=== PATIENT | female | born 1945 | race Caucasian/White ===

== ENCOUNTER 2021-07-03 10:39 | Inpatient (IN) | payer OTHER ==
[~2021-07-03] VITALS: Ht 175.3 cm; Wt 77.1 kg
[2021-07-03] VITALS (11 sets, daily range): BP systolic 94–214
[~2021-07-03 10:39] MED LIST: ETOMIDATE 20 MG/ 10 ML VIAL (AMIDATE) ONE; ROCURONIUM BROMIDE 10 MG/ML (ZEMURON) ONE
--- NOTE | 2021-07-03 10:39 | NUR ---
Patient to ER bed 8 for evaluation. Side rails up. Report given to Yanci GREENE.
--- NOTE | 2021-07-03 10:40 | NUR ---
ER Dr Dickson at bedside to assess/treat patient
--- NOTE | 2021-07-03 10:40 | NUR ---
Pt BIBA from home with Ambu-bag in progress re new onset sz. PMH lung CA with mets to brain reported per MD. Pt unresponsive upon arrival. Code status unclear per dtr, who came with patient. Pt to be full code until clarification. On monitoring manager, pt tachycardic and hypertensive. MD, RN, and RT to bedside immediately upon arrival.
--- NOTE | 2021-07-03 10:41 | NUR ---
PT ARRIVES WITH #20 TO RIGHT HAND, PATENT WHEN FLUSHED WITH 10ML NS
--- NOTE | 2021-07-03 10:45 | NUR ---
# 18 gauge angiocath placed to LAC. Use of asceptic technique. Opsite placed over site. Blood return noted. Flushed with 10 cc of normal saline. No evidence of infiltration noted. Patient tolerated well.
--- NOTE | 2021-07-03 10:47 | NUR ---
Patient not known to be of DNR status. Patient medicated with 10 mg of ETOMIDATE AND 100MG ROCURONIUM for sedation prior to placement of ET tube. Respiratory therapy at bedside prior to placement. ET tube placed by ER DR. GUZMAN. Cuff inflated with air. Auscultation of breath sounds over bilateral chest wall. ET tube secured. O2 sats 99% pulse ox. PCXR ordered to check tube placement.
[2021-07-03] MEDS ORDERED: PROPOFOL DRIP 100 ML IV ONE ×2 (11:00→15:22)
--- NOTE | 2021-07-03 11:09 | NUR ---
# 16 FR NG tube placed to LEFT nare. Placement checked by auscultation of instilled air into stomach and aspiration of gastric contents. Tubing taped in place to prevent dislodging. Patient tolerated WELL.
[2021-07-03] MEDS ORDERED: LEVO125T8 PO (11:13)
[2021-07-03] MEDS ORDERED: PARO40TA80 PO (11:13)
[2021-07-03] MEDS ORDERED: DEC4 PO (11:13)
[2021-07-03] MEDS ORDERED: LIP40 PO (11:13)
--- NOTE | 2021-07-03 11:13 | NUR ---
Medication reconciliation completed with information provided by patient's medication bottles. Any prior medication reconciliation on file was reviewed and corrected.
--- NOTE | 2021-07-03 11:15 | NUR ---
PORTABLE XRAY AT THE BEDSIDE
--- NOTE | 2021-07-03 11:24 | NUR ---
LAB AT THE BEDSIDE FOR BLOOD DRAW
--- NOTE | 2021-07-03 11:30 | NUR ---
DAUGHTER AT THE BEDSIDE
[2021-07-03 11:38] LABS: BASOPHILS # (AUTO) 0.1 K/uL (0.0-0.2); BASOPHILS % (AUTO) 0.7 % (0.0-2.0); EOSINOPHILS # (AUTO) 0.1 K/uL (0.0-0.4); EOSINOPHILS % (AUTO) 0.6 % (0.0-4.0); HEMATOCRIT 41.8 % (36-48); HEMOGLOBIN 13.8 g/dL (12.0-16.0); LYMPHOCYTES # (AUTO) 0.6 K/uL (1.0-5.5); LYMPHOCYTES % (AUTO) 4.3 % (20.5-51.5); MEAN CORPUSCULAR HEMOGLOBIN 32 pg (27-31); MEAN CORPUSCULAR HGB CONC 33 % (32-36); MEAN CORPUSCULAR VOLUME 96 fL (79.0-98.0); MONOCYTES # (AUTO) 0.5 K/uL (0.0-1.0); MONOCYTES % (AUTO) 3.7 % (1.7-9.3); NEUTROPHILS # (AUTO) 12.7 K/uL (1.8-7.7); NEUTROPHILS % (AUTO) 90.7 % (40.0-70.0); PLATELET COUNT (AUTO) 203 K/uL (130-430); RED BLOOD CELL COUNT(AUTO) 4.37 MIL/uL (4.2-6.2); RED CELL DISTRIBUTION WIDTH 14.6 % (9.0-15.0)
[2021-07-03 11:54] LABS: INR 0.9 (0.8-1.2); PROTHROMBIN TIME 9.9 SECS (9.5-12.5)
[2021-07-03 12:08] LABS: ANION GAP 8 (5-15); CHLORIDE 102 mmol/L (98-107); CREATININE 0.86 mg/dL (0.55-1.30); GLUCOSE 162 mg/dL (70-99); POTASSIUM 3.9 mmol/L (3.5-5.1); SODIUM SERUM 136 mmol/L (136-145); UREA NITROGEN, BLOOD 21 mg/dL (8-21)
[2021-07-03 12:22] LABS: ALANINE AMINOTRANSFERASE 40 U/L (12-78); ALBUMIN 3.1 g/dL (3.4-4.8); ASPARTATE AMINOTRANSFERASE 20 U/L (10-37); TOTAL BILIRUBIN 0.1 mg/dL (0.0-1.0)
--- NOTE | 2021-07-03 13:18 | NUR ---
Propofol gtt decreased to 30 mcg/kg/min due to BP 109/60. RAMONA Carreno made aware.
--- NOTE | 2021-07-03 13:50 | NUR ---
# 16 FR Patterson catheter with use of sterile technique. Immediate return of 100 cc YELLOW urine noted. Bedside drainage bag placed below level of bladder. Urine sample collected and sent to lab. Pt tolerated procedure well. Patient unable to toilet self.
[2021-07-03 14:26] LABS: BILIRUBIN,URINE NEGATIVE (NEGATIVE); CLARITY/URINE CLEAR (CLEAR); COLOR,URINE YELLOW (YELLOW); GLUCOSE,URINE NEGATIVE (NEGATIVE); KETONES,URINE NEGATIVE (NEGATIVE); LEUKOCYTE ESTERASE ,URINE NEGATIVE (NEGATIVE); NITRITE, URINE NEGATIVE (NEGATIVE); PH,URINE 5.5 (5.0-8.0); PROTEIN URINE 1+ (NEGATIVE); UROBILINOGEN,URINE 0.2 (0.2-1.0)
[2021-07-03 14:36] LABS: BLOOD, URINE TRACE (NEGATIVE)
[2021-07-03 14:41] LABS: BACTERIA,URINE RARE /HPF (None Seen); HYALINE CASTS, URINE 0-10 /LPF (None Seen); WBC,URINE 0-3 /HPF (0-3)
[2021-07-03 14:42] LABS: MUCUS,URINE 1+ /LPF (None Seen)
[2021-07-03] MEDS: D5/0.45 NS 1,000 ML IV SCH (15:45)
--- NOTE | 2021-07-03 16:00 | NUR ---
Admit bed requested Patient will be admitted to care of Dr. Angel. Admitted to ICU unit. Diagnosis Status Epilepticus Inpatient (Yes or No) Y Observation (Yes or No) Y Orientation concerns or request close to nursing station (Yes or No) N Covid Status Neg On vent or bipap Vent Isolation requirements N Needs a sitter N From Home (Yes or if No enter name of facility) Home Requires Dialysis (Yes or No) N Med Rec Completed (Yes of No) Y
--- NOTE | 2021-07-03 16:38 | NUR ---
Patient will be admitted to care of DR. YOUNG. Admitted to ICU unit. Will go to room 7. Belongings list completed. Complete and up to date summary report printed. SBAR report to be given at bedside with opportunity for questions.
--- NOTE | 2021-07-03 17:22 | NUR ---
All cares assumed patient will transfer to Bed 7 ICU
--- NOTE | 2021-07-03 17:35 | NUR ---
RT NOTE: 1735 Pt transported to ICU 7 with RN and placed on vent. No issues during tansport. Addendum: 07/03/21 at 1813 by Judy Omalley RT Amended: Links added.
--- NOTE | 2021-07-03 18:00 | NUR ---
Patient arrived in ICU Bed 7 All cares assumed (RAMONA Smith) Bedside report rcvd. Patient placed onto monitor.
--- NOTE | 2021-07-03 18:01 | NUR ---
Spoke with MD Jeanne crump [facility] and transcribed,
[2021-07-03] MEDS: levETIRAcetam 1,000 MG in NS 100 ML IV SCH ×2 (18:08→21:54)
--- NOTE | 2021-07-03 18:14 | NUR ---
PAGED DR.PALIWAL Mckee FOR ORDERS SPOKE TO: AUTOMATED EXCHANGE
--- NOTE | 2021-07-03 18:19 | NUR ---
Nursing Narrative: (Sarah,RN) Patient rc'vd on ventilator settings AC, TV400, FIO2 40%, Peep 5, Rate 20. Pt withdrawals to pain, intubated and sedated on Propofol running at 50mcg/kg/min. Sinus tach on monitor 105-110s regular rhythm. Lung sounds coarse BUL / BLL noted on auscultation, RT aware and MD notified. Abd soft round, non-tender last BM unknown. 16F snowden placed when in ED, urine nik in color draining below level of bladder. Skin warm dry and intact no breakdown noted. PIV 18G to left AC, PIV 18G to Right Hand, patent with IVs running on pump. CHG bath given with new gown applied.
--- NOTE | 2021-07-03 18:26 | NUR ---
PICC order placed, called family to obtain consent, pending return call.
[2021-07-03] MEDS ORDERED: NOREPINEPHRINE BITARTRATE 8 MG in NS 242 ML IV PRN (18:30)
--- NOTE | 2021-07-03 18:37 | NUR ---
Belongings sent home with family per ED
--- NOTE | 2021-07-03 18:56 | NUR ---
Report given to NOC RN, all cares endorsed.
[2021-07-03 19:28] LABS: INR 0.9 (0.8-1.2); PROTHROMBIN TIME 9.8 SECS (9.5-12.5)
[2021-07-03] MEDS ORDERED: ONDANSETRON HCL 4 MG/2 ML VIAL IVP PRN (20:15)
[2021-07-03] MEDS: PROPOFOL DRIP 100 ML IV PRN (21:56)
[2021-07-03] MEDS ORDERED: cefTRIAXone 1 GM IVPB PREMIX 50 ML IV ONE (22:14)
[2021-07-03] MEDS: cefTRIAXone 1 GM in D5W 50 ML IV SCH (22:48)
[2021-07-04] VITALS (48 sets, daily range): BP systolic 93–152
--- NOTE | 2021-07-04 01:31 | NUR ---
CONSULTATION PAGED/CALLED Reason for Consultation: RESPIRATORY FAILURE Person Who was Notified: CARLOS Consulting Physician: DR. ENRIQUEZ Lift Manager Specialty: PULMONOLOGY Ordering Physician: DR. Rylee YOUNG
[2021-07-04] MEDS: D5/0.45 NS 1,000 ML IV SCH ×2 (05:04→12:00)
[2021-07-04 06:37] LABS: ANION GAP 6 (5-15); CALCIUM 8.6 mg/dL (8.4-11.0); CHLORIDE 105 mmol/L (98-107); CREATININE 0.77 mg/dL (0.55-1.30); GLUCOSE 105 mg/dL (70-99); PHOSPHORUS 4.2 mg/dL (2.7-4.5); POTASSIUM 3.8 mmol/L (3.5-5.1); SODIUM SERUM 140 mmol/L (136-145); UREA NITROGEN, BLOOD 18 mg/dL (8-21)
[2021-07-04 06:44] LABS: BASOPHILS % (AUTO) 0.3 % (0.0-2.0); EOSINOPHILS # (AUTO) 0.1 K/uL (0.0-0.4); EOSINOPHILS % (AUTO) 0.8 % (0.0-4.0); HEMATOCRIT 38.6 % (36-48); LYMPHOCYTES % (AUTO) 9.3 % (20.5-51.5); MEAN CORPUSCULAR HEMOGLOBIN 32 pg (27-31); MEAN CORPUSCULAR HGB CONC 34 % (32-36); MEAN CORPUSCULAR VOLUME 96 fL (79.0-98.0); MONOCYTES # (AUTO) 0.9 K/uL (0.0-1.0); MONOCYTES % (AUTO) 8.5 % (1.7-9.3); NEUTROPHILS # (AUTO) 8.5 K/uL (1.8-7.7); NEUTROPHILS % (AUTO) 81.1 % (40.0-70.0); PLATELET COUNT (AUTO) 166 K/uL (130-430); RED BLOOD CELL COUNT(AUTO) 4.02 MIL/uL (4.2-6.2); RED CELL DISTRIBUTION WIDTH 14.9 % (9.0-15.0); WHITE BLOOD COUNT (AUTO) 10.4 K/uL (4.8-10.8)
[2021-07-04] MEDS ORDERED: DEXAMETHASONE SOD PHOSPHATE 4 MG/ML VIAL IVP ONE (07:15)
--- NOTE | 2021-07-04 07:15 | NUR ---
Receiving RN: Mike Garcia Patient rc'vd on ventilator settings AC 20, TV400, FIO2 40%, Peep 5, Rate 20. Paitient is intubated and sedated on Propofol running at 50mcg/kg/min. Sinus rhythm on monitor 68's regular rhythm. Abd soft round, non-tender last BM was last night as per report. With 16F snowden draining below level of bladder with clear- yellow urine. Skin warm dry and intact no breakdown noted. PICC line on TICO with double lumen , flushed & patent with IVs running on pump.
[2021-07-04] MEDS: PANTOPRAZOLE SODIUM 40 MG/VIAL (PROTONIX) IVP SCH (08:18)
[2021-07-04] MEDS: levETIRAcetam 1,000 MG in NS 100 ML IV SCH ×2 (08:20→22:03)
--- NOTE | 2021-07-04 09:00 | NUR ---
ABG results relayed to Dr. Oconnor via phone call. Per Dr. Oconnor, no new orders at this time. Will continue to monitor. Alesia Garcia RN
--- NOTE | 2021-07-04 09:50 | NUR ---
Dr. Angel ordered Dietary consult for proper Diet order. Dietitian here in ICU & made aware of the order. Alesia Garcia RN
[2021-07-04] MEDS: DEXAMETHASONE SOD PHOSPHATE 4 MG/ML VIAL IVP SCH ×2 (12:00→18:45)
--- NOTE | 2021-07-04 13:30 | NUR ---
Wound Evaluation: Wound Consult ordered for Low Jose Score. Patient evaluated for a low Jose score of 9. Patient was obtunded, intubated, and sedated, and received in a Michelle Bed. Patient needs to be turned in bed. Skin is intact. Recommend reposition patient every 2 hours with pillow support. Elevate, off-load and float bilateral heels with 1 pillow lengthwise under each extremity at all times. Offload pressure areas with pillows for pressure re-distribution. Perform skin care and monitor skin integrity Q shift. Use moisture barrier cream on moisture susceptible areas QID and PRN for soiling. Place patient on a low air-loss mattress.
--- NOTE | 2021-07-04 13:39 | NUR ---
Dietitian Recommendations * Vital AF 1.2 at 50 ml/hr (goal rate), Prosource daily, FWF 250 Q6H * Current Propofol, EN and supplement Provides 1561 kcals/day, 105 g protein/day, 1973 ml free water * Meeting 103% of estimated caloric needs, 78% of upper end of estimated protein needs and 68% of estimated fluid needs. Please refer to Nutrition Assessment for details. Addendum: 07/04/21 at [address] Amended: Links added.
[2021-07-04] MEDS: PROPOFOL DRIP 100 ML IV PRN ×2 (14:13→19:14)
--- NOTE | 2021-07-04 15:04 | NUR ---
NEURO CONSULTATION : JUAN MITCHELL IS AWARE AND WILL BE HERE TODAY AFTER 5 PM. DAUGHTER: BOOKER MADE AWARE.
--- NOTE | 2021-07-04 19:30 | NUR ---
Bulmaro Quinn RN, report received from day RN. Assuming care now.
[2021-07-04] MEDS: LORazepam 2 MG/ML VIAL IVP PRN (20:50)
[2021-07-04] MEDS: cefTRIAXone 1 GM in D5W 50 ML IV SCH (22:03)
[2021-07-05] VITALS (39 sets, daily range): BP systolic 103–161
[2021-07-05] MEDS: DEXAMETHASONE SOD PHOSPHATE 4 MG/ML VIAL IVP SCH ×4 (00:48→17:33)
[2021-07-05] MEDS: D5/0.45 NS 1,000 ML IV SCH ×2 (05:15→14:06)
[2021-07-05 06:32] LABS: BASOPHILS # (AUTO) 0.3 K/uL (0.0-0.2); BASOPHILS % (AUTO) 1.5 % (0.0-2.0); EOSINOPHILS % (AUTO) 0.3 % (0.0-4.0); HEMATOCRIT 38.2 % (36-48); LYMPHOCYTES # (AUTO) 0.6 K/uL (1.0-5.5); LYMPHOCYTES % (AUTO) 3.3 % (20.5-51.5); MEAN CORPUSCULAR HEMOGLOBIN 32 pg (27-31); MEAN CORPUSCULAR HGB CONC 34 % (32-36); MEAN CORPUSCULAR VOLUME 95 fL (79.0-98.0); MONOCYTES # (AUTO) 0.6 K/uL (0.0-1.0); MONOCYTES % (AUTO) 3.3 % (1.7-9.3); NEUTROPHILS # (AUTO) 16.6 K/uL (1.8-7.7); NEUTROPHILS % (AUTO) 91.6 % (40.0-70.0); PLATELET COUNT (AUTO) 202 K/uL (130-430); RED BLOOD CELL COUNT(AUTO) 4.02 MIL/uL (4.2-6.2); RED CELL DISTRIBUTION WIDTH 14.7 % (9.0-15.0); WHITE BLOOD COUNT (AUTO) 18.1 K/uL (4.8-10.8)
[2021-07-05 06:55] LABS: ALANINE AMINOTRANSFERASE 21 U/L (12-78); ALBUMIN 2.3 g/dL (3.4-4.8); ANION GAP 7 (5-15); ASPARTATE AMINOTRANSFERASE 14 U/L (10-37); CALCIUM 8.4 mg/dL (8.4-11.0); CHLORIDE 105 mmol/L (98-107); CREATININE 0.61 mg/dL (0.55-1.30); GLUCOSE 138 mg/dL (70-99); POTASSIUM 3.8 mmol/L (3.5-5.1); SODIUM SERUM 140 mmol/L (136-145); TOTAL BILIRUBIN < 0.1 mg/dL (0.0-1.0); UREA NITROGEN, BLOOD 14 mg/dL (8-21)
--- NOTE | 2021-07-05 07:30 | NUR ---
Receiving RN: Mike Garcia Patient rc'vd on ventilator settings AC 20, TV400, FIO2 40%, Peep 5, Rate 20. Paitient is intubated and sedated on Propofol running at 20mcg/kg/min. Sinus rhythm on monitor 70's regular rhythm. Abd soft round, non-tender. With 16F snowden draining below level of bladder with clear- yellow urine. Skin warm dry and intact no breakdown noted. PICC line on TICO with double lumen , flushed & patent with IVs running on pump. NGT with continuous feeding: Vital AF @ 30 mL/hr. HOB elevated. Aspiration precautions rendered.
[2021-07-05] MEDS: PROPOFOL DRIP 100 ML IV PRN ×2 (07:46→14:59)
[2021-07-05 08:36] LABS: ERYTHROCYTE SEDIMENTATION RATE 12 MM/HR (0-20)
[2021-07-05] MEDS: PANTOPRAZOLE SODIUM 40 MG/VIAL (PROTONIX) IVP SCH (08:58)
[2021-07-05 09:01] LABS: C-REACTIVE PROTEIN QUANT 5.2 mg/dL (0-0.5)
--- NOTE | 2021-07-05 10:45 | NUR ---
Paged Dr. Stone regarding continuation of Keppra. Received new order for Keppra 1000 mg BID
[2021-07-05] MEDS ORDERED: levETIRAcetam 1,000 MG in NS 100 ML IV ONE (11:00)
[2021-07-05] MEDS: BRIMONIDINE TARTRATE 0.2% 5 mL EYE DROPS EACH EYE SCH (15:10)
--- NOTE | 2021-07-05 16:32 | NUR ---
EXTUBATED PATIENT PER MD MORA'S ORDER. PLACED ON NC 2LPM. SPO2 97%, HR 88. PT TOLERATING WELL.
[2021-07-05] MEDS ORDERED: LATANOPROST 2.5 ML DROPS (XALATAN) OP SCH (18:00)
--- NOTE | 2021-07-05 19:10 | NUR ---
Opening notes: Received bedside report from Abigail, patient was A&O X2, NC at 4 L, patient is NPO pending a swallow eval orders put n during day shift, no skin issues foam dressing applid to sacral for prevention, TICO PICC clean and dry covered with transparent dressing saline lock, left hand 18G saline lock, no IV fluid running, bed at the lowest level, call light within reach, appropriate side rails up, oxygen and suction working, CT scan pending tonight without contrast.
[2021-07-05] MEDS: cefTRIAXone 1 GM in D5W 50 ML IV SCH (20:05)
[2021-07-05] MEDS: levETIRAcetam 1,000 MG in NS 100 ML IV SCH (21:04)
[2021-07-06] VITALS (20 sets, daily range): BP systolic 121–167
[2021-07-06] MEDS: DEXAMETHASONE SOD PHOSPHATE 4 MG/ML VIAL IVP SCH ×5 (00:15→23:00)
[2021-07-06] MEDS: BRIMONIDINE TARTRATE 0.2% 5 mL EYE DROPS EACH EYE SCH ×3 (00:16→14:19)
--- NOTE | 2021-07-06 05:45 | NUR ---
Dr Oconnor came and did rounds, suggested patient can be downgraded today if everyone agrees.
[2021-07-06] MEDS ORDERED: DEXAMETHASONE SOD PHOSPHATE 4 MG/ML VIAL ONE ×2 (05:56→06:05)
--- NOTE | 2021-07-06 07:30 | NUR ---
OPENING NOTE RECEIVED BEDSIDE REPORT FROM JUAN DANIEL. PT IS A& Ox4. HEART RATE IN THE 70'S SINUS RHYTHM. BP STABLE. HOB ELEVATED 45 DEGREES. PT RESTING COMFORTABLY IN BED WITH NO COMPLAINTS AT THIS TIME. 3 BED RAILS UP, BRAKES ON AND IN LOWEST POSITION. FAMILY AT BEDSIDE. WILL CONTINUE TO MONITOR.
[2021-07-06 07:35] LABS: BASOPHILS % (AUTO) 0.1 % (0.0-2.0); HEMATOCRIT 40.8 % (36-48); HEMOGLOBIN 13.6 g/dL (12.0-16.0); LYMPHOCYTES # (AUTO) 0.4 K/uL (1.0-5.5); LYMPHOCYTES % (AUTO) 2.1 % (20.5-51.5); MEAN CORPUSCULAR HEMOGLOBIN 32 pg (27-31); MEAN CORPUSCULAR HGB CONC 33 % (32-36); MEAN CORPUSCULAR VOLUME 96 fL (79.0-98.0); MONOCYTES # (AUTO) 0.7 K/uL (0.0-1.0); MONOCYTES % (AUTO) 3.3 % (1.7-9.3); NEUTROPHILS # (AUTO) 19.4 K/uL (1.8-7.7); NEUTROPHILS % (AUTO) 94.5 % (40.0-70.0); PLATELET COUNT (AUTO) 160 K/uL (130-430); RED BLOOD CELL COUNT(AUTO) 4.26 MIL/uL (4.2-6.2); RED CELL DISTRIBUTION WIDTH 14.7 % (9.0-15.0); WHITE BLOOD COUNT (AUTO) 20.6 K/uL (4.8-10.8)
[2021-07-06 08:37] LABS: ANION GAP 9 (5-15); CALCIUM 8.2 mg/dL (8.4-11.0); CHLORIDE 107 mmol/L (98-107); CREATININE 0.61 mg/dL (0.55-1.30); GLUCOSE 124 mg/dL (70-99); SODIUM SERUM 141 mmol/L (136-145); UREA NITROGEN, BLOOD 19 mg/dL (8-21)
[2021-07-06] MEDS: PANTOPRAZOLE SODIUM 40 MG/VIAL (PROTONIX) IVP SCH (08:58)
[2021-07-06] MEDS: levETIRAcetam 1,000 MG in NS 100 ML IV SCH ×2 (08:58→20:07)
[2021-07-06 09:16] LABS: C-REACTIVE PROTEIN QUANT 6.9 mg/dL (0-0.5)
--- NOTE | 2021-07-06 09:57 | NUR ---
DR YOUNG AT BEDSIDE
[2021-07-06] MEDS ORDERED: hydrALAZINE HCL 20 MG/ML VIAL IVP PRN (10:00)
[2021-07-06 12:02] LABS: ERYTHROCYTE SEDIMENTATION RATE 29 MM/HR (0-20)
--- NOTE | 2021-07-06 14:50 | NUR ---
RAMONA TREJO LEFT MESSAGE FOR SPEECH THERAPIST TO FOLLOW UP EXISTING ORDER FOR A SWALLOW EVAL.
[2021-07-06] MEDS ORDERED: LATANOPROST 2.5 ML DROPS (XALATAN) OP SCH (15:05)
--- NOTE | 2021-07-06 16:46 | NUR ---
ST EVALUATION COMPLETED. ST TX NOT INDICATED AT THIS TIME. RECOMMEND PO DIET OF REGULAR/THIN LIQUID WITH DISTANT SUPERVISION FOR ASPIRATION PRECAUTIONS.
--- NOTE | 2021-07-06 19:20 | NUR ---
Opening Notes: Received bedside report from Gatito. Patient was awake and alert sitting up. Patient had ordered in for transfer to the [facility] with a bed 134A. Patient has a TICO PICC, L AC, and R Hand all saline locked. patient had her swallow eval today and is on reg diet. On 5 L NC. Bed at the lowest level, suction working, brakes are locked, appropriate side rails up, call light within reach.
[2021-07-06] MEDS: cefTRIAXone 1 GM in D5W 50 ML IV SCH (20:51)
[2021-07-06] MEDS: LATANOPROST 2.5 ML DROPS (XALATAN) OP SCH (21:00)
[2021-07-06] MEDS: DOCUSATE SODIUM 100 MG CAPSULE PO SCH (21:15)
--- NOTE | 2021-07-06 21:50 | NUR ---
Transferred patient to room 134A, gave bedside report to Noemí. Patient was A&O X4, 5 L NC, only personal belongings were a pair of tweezers, family has all of her other belongings.
--- NOTE | 2021-07-06 22:15 | NUR ---
Patient Transfer: Patient received from ICU. Patient is AAOx4 able to make needs known, denies any pain or distress at this time. Chest rise is even and unlabored with diminished lung sounds on 5L. Normal hear sounds and placed on tele monitoring. Normal bowel sounds are present x4, denies pain with palpation, no distention is noted. PIV's noted on LAC 18G patent and saline locked, RH 22G patent and saline locked. PICC line noted on TICO placed on 07/03/21 no s/s of arm swelling or erythema. Skin is Intact and free of open lesions. Patent has not ambulated since admission. Patterson cath noted to be in place. patent and hanging low with clear yellow urine flowing. Patient is stable at this time and safety measures have been put in place. Patient has been orientated to call light, staff and unit. Will continue to monitor throughout the shift.
--- NOTE | 2021-07-07 02:00 | NUR ---
Patient is sleeping no s/s of distress. Chest rise continues to be even and unlabored on 5L RA. Will continue to monitor.
[2021-07-07 02:34] VITALS: BP_SYST 148
[2021-07-07 05:59] LABS: BASOPHILS % (AUTO) 0.2 % (0.0-2.0); HEMATOCRIT 41.6 % (36-48); HEMOGLOBIN 13.9 g/dL (12.0-16.0); LYMPHOCYTES # (AUTO) 0.5 K/uL (1.0-5.5); LYMPHOCYTES % (AUTO) 3.4 % (20.5-51.5); MEAN CORPUSCULAR HEMOGLOBIN 32 pg (27-31); MEAN CORPUSCULAR HGB CONC 33 % (32-36); MEAN CORPUSCULAR VOLUME 95 fL (79.0-98.0); MONOCYTES # (AUTO) 0.6 K/uL (0.0-1.0); MONOCYTES % (AUTO) 4.2 % (1.7-9.3); NEUTROPHILS # (AUTO) 13.9 K/uL (1.8-7.7); NEUTROPHILS % (AUTO) 92.2 % (40.0-70.0); PLATELET COUNT (AUTO) 170 K/uL (130-430); RED BLOOD CELL COUNT(AUTO) 4.39 MIL/uL (4.2-6.2); RED CELL DISTRIBUTION WIDTH 14.7 % (9.0-15.0); WHITE BLOOD COUNT (AUTO) 15.1 K/uL (4.8-10.8)
[2021-07-07] MEDS: DEXAMETHASONE SOD PHOSPHATE 4 MG/ML VIAL IVP SCH ×3 (06:16→18:36)
[2021-07-07 07:24] LABS: ALANINE AMINOTRANSFERASE 16 U/L (12-78); ALBUMIN 2.4 g/dL (3.4-4.8); ANION GAP 8 (5-15); ASPARTATE AMINOTRANSFERASE 12 U/L (10-37); CALCIUM 8.3 mg/dL (8.4-11.0); CHLORIDE 106 mmol/L (98-107); GLUCOSE 131 mg/dL (70-99); POTASSIUM 4.3 mmol/L (3.5-5.1); SODIUM SERUM 139 mmol/L (136-145); UREA NITROGEN, BLOOD 31 mg/dL (8-21)
[2021-07-07 08:00] VITALS: BP_SYST 156; BP_SYST 161
[2021-07-07] MEDS: levETIRAcetam 1,000 MG in NS 100 ML IV SCH ×2 (08:41→21:20)
[2021-07-07] MEDS: PANTOPRAZOLE SODIUM 40 MG/VIAL (PROTONIX) IVP SCH (08:41)
[2021-07-07 09:55] LABS: ERYTHROCYTE SEDIMENTATION RATE 38 MM/HR (0-20)
[2021-07-07 10:24] LABS: TOTAL BILIRUBIN 0.1 mg/dL (0.0-1.0)
[2021-07-07 11:03] VITALS: BP_SYST 148
--- NOTE | 2021-07-07 16:36 | NUR ---
PATIENT IN BED RESTING COMFORTABLY HOB ELEVATED. NO C/O PAIN OR DISCOMFORT. RESPIRATIONS ARE NON-LABORED ON 2LPM. SKIN IS CLEAN, WARM AND DRY TO TOUCH. IV ACCESS PATENT, NO S/SX OF REDNESS OR SWELLING OBSERVED. OBRIEN PATENT, SECURED, DRAINING BY WAY OF GRAVITY. BED IS LOCKED IN LOWEST POSITION, CALL LIGHT IN REACH. NURSE WILL CONTINUE CARE AND MONITOR FOR CHANGES IN STATUS.
--- NOTE | 2021-07-07 16:41 | NUR ---
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 Per EMR review, pt was stated on EN support while intubated in ICU -- pt was extubated on 07/05, then was transferred out of ICU last night, 07/06; pt is currently on RA; seen by ST for swallow eval 07/06, at which time, ST rec for regular diet/thin liquids w/ distant supervision for aspiration precautions; tolerated 75% of breakfast; abd is soft w/ active bowel sounds; LBM x1 07/05; Jose scale: 17, skin intact. Pt may benefit from supplementation to better meet nutritional needs during catabolic state. Current Diet Order/Nutrition Support: Regular x1 day Patient/Significant Other Unable To Verbalize Education Provided Not Indicated Pertinent Medications: colace, decadron, protonix IV Pertinent Labs: Reviewed Height (Feet) 5 feet Height (Inches) 9.00 inches Weight (Pounds) 170 pounds -- stable since 07/04 Patient Weight 77.111 kg Body Mass Index 25.10 kg/m2 Patterson/Adjusted Body Weight 145#/65.9 kg Recent Weight Change unable to determine Weight Status Appropriate Usual Diet At Home unable to determine NEW Estimated Energy Expenditure (kcals/day) 5617-6792 (30-35 kcal/kg CBW d/t CA) Estimated Protein Required (g/day) 92-154 g/day (1.2-2 g/kg CBW d/t CA) Estimated Fluid Required (l/day) 4863-2514 L/day (25-30 ml/kg CBW for GERIAT maintenance) Problem/Etiology/Signs/Symptoms Increased nutritional needs r/t metabolic demands AEB estimated energy and protein needs for catabolic state due to cancer. *Ongoing Expected Outcomes/Goals Monitor tolerance of nutrition support w/ goal of pt meeting greater than 80% of estimated needs, labs trending WNL, normal GI function, skin integrity, wt maintenance. Dietitian Recommendations * Regular diet, Ensure Enlive BID (ONS yields 700 kcal/day, 40 gm protein/day) Follow Up Moderate Risk: F/U in 3-5 days
--- NOTE | 2021-07-07 16:51 | NUR ---
Dietitian Recommendations * Regular diet, Ensure Enlive BID (ONS yields 700 kcal/day, 40 gm protein/day) LP, RD Please refer to Nutrition F/U for details.
--- NOTE | 2021-07-07 18:52 | NUR ---
PATIENT IN BED RESTING COMFORTABLY HOB ELEVATED. NO C/O PAIN OR DISCOMFORT. RESPIRATIONS ARE NON-LABORED ON 2LPM. SKIN IS CLEAN, WARM AND DRY TO TOUCH. IV ACCESS PATENT, NO S/SX OF REDNESS OR SWELLING OBSERVED. OBRIEN PATENT, SECURED, DRAINING BY WAY OF GRAVITY. BED IS LOCKED IN LOWEST POSITION, CALL LIGHT IN REACH. NURSE WILL ENDORSE PATIENT TO DIRECTOR OF DONOR RELATIONS NURSE FOR CONTINUE CARE
[2021-07-07 20:00] VITALS: BP_SYST 163
[2021-07-07] MEDS: DOCUSATE SODIUM 100 MG CAPSULE PO SCH (21:00)
[2021-07-07] MEDS: cefTRIAXone 1 GM in D5W 50 ML IV SCH (21:18)
[2021-07-07] MEDS: LATANOPROST 2.5 ML DROPS (XALATAN) OP SCH (21:21)
[2021-07-08 00:48] VITALS: BP_SYST 122
[2021-07-08] MEDS: DEXAMETHASONE SOD PHOSPHATE 4 MG/ML VIAL IVP SCH ×4 (01:19→17:44)
[2021-07-08 07:18] LABS: ANION GAP 8 (5-15); CALCIUM 9.1 mg/dL (8.4-11.0); CHLORIDE 107 mmol/L (98-107); CREATININE 0.67 mg/dL (0.55-1.30); GLUCOSE 110 mg/dL (70-99); POTASSIUM 3.8 mmol/L (3.5-5.1); SODIUM SERUM 140 mmol/L (136-145); UREA NITROGEN, BLOOD 26 mg/dL (8-21)
--- NOTE | 2021-07-08 08:30 | NUR ---
INITIAL ROUNDS Received pt AAOx4, no s/s resp distress, JL@ 98% on O2 4L via NC, titrated down to 2L-will rechecked SAO2. No c/o pain or discomfort. Plan of care for the day reviewed with pt-pt verbalized her understanding. Patterson draining to gravity with light yellow urine. IVF at KVO rate to TICO PICC with no s/s infiltration to site. Pain management, disease process, skin and safety discussed, teach back done. Side rails up x3, bed alarm on, room close to nursing station for safety, call light within reach.
[2021-07-08 08:57] VITALS: BP_SYST 151
[2021-07-08 09:02] LABS: BASOPHILS % (AUTO) 0.3 % (0.0-2.0); HEMOGLOBIN 13.7 g/dL (12.0-16.0); LYMPHOCYTES # (AUTO) 0.5 K/uL (1.0-5.5); LYMPHOCYTES % (AUTO) 3.3 % (20.5-51.5); MEAN CORPUSCULAR HEMOGLOBIN 32 pg (27-31); MEAN CORPUSCULAR HGB CONC 33 % (32-36); MEAN CORPUSCULAR VOLUME 95 fL (79.0-98.0); MONOCYTES # (AUTO) 0.8 K/uL (0.0-1.0); MONOCYTES % (AUTO) 5.4 % (1.7-9.3); NEUTROPHILS # (AUTO) 13.6 K/uL (1.8-7.7); PLATELET COUNT (AUTO) 152 K/uL (130-430); RED BLOOD CELL COUNT(AUTO) 4.31 MIL/uL (4.2-6.2); RED CELL DISTRIBUTION WIDTH 14.9 % (9.0-15.0)
[2021-07-08 09:44] LABS: WHITE BLOOD COUNT (AUTO) 14.9 K/uL (4.8-10.8)
[2021-07-08] MEDS: PANTOPRAZOLE SODIUM 40 MG/VIAL (PROTONIX) IVP SCH (10:03)
[2021-07-08] MEDS: levETIRAcetam 1,000 MG in NS 100 ML IV SCH ×2 (10:06→21:14)
[2021-07-08] MEDS ORDERED: BIMA2.5D5 OP (11:09)
[2021-07-08] MEDS ORDERED: BIMATOPROST 0.01%, 2.5 ML EYE DROPS OP SCH ×2 (11:30→12:15)
[2021-07-08 12:30] VITALS: BP_SYST 150
[2021-07-08] MEDS ORDERED: LEVE1000 PO (13:34)
--- NOTE | 2021-07-08 14:21 | NUR ---
MICAH DC'D Patterson discontinued as ordered. Pt had 900 ml yellow urine. Pt educated on need to void within 6 hours and to call nursing for assist out of bed to void-teach back done. Pt tolerated well. Call light within reach.
--- NOTE | 2021-07-08 14:45 | NUR ---
OXYGEN TITRATED Pt's oxygen removed with no s/s resp distress, SAO2 was 96% on room air. Will recheck patient in 30 minutes.
--- NOTE | 2021-07-08 15:25 | NUR ---
OXYGEN/VOIDED Pt with no c/o shortness of breath, pt ambulating in the hallway with no s/s resp distress, SAO2 95% on room air. Pt ambulated to the bathroom and voided. Pt now back in bed with no c/o shortness of breath. All precautions remain in place.
[2021-07-08 16:30] VITALS: BP_SYST 149
[2021-07-08] MEDS: LATANOPROST 2.5 ML DROPS (XALATAN) OP SCH (17:45)
--- NOTE | 2021-07-08 19:26 | NUR ---
CLOSING NOTE Pt sitting up in bed visiting with her family, no s/s resp distress, no c/o pain or discomfort. Pt informed that she will have to wait for Home Health for Physical Therapy, medication reconciliation and FWW equipment-pt verbalized her understanding and hopes to go home tomorrow. Needs met, call light within reach.
[2021-07-08 20:00] VITALS: BP_SYST 155
[2021-07-08] MEDS: DOCUSATE SODIUM 100 MG CAPSULE PO SCH (21:12)
[2021-07-08] MEDS: LORazepam 2 MG/ML VIAL IVP PRN (21:16)
[2021-07-08] MEDS: cefTRIAXone 1 GM in D5W 50 ML IV SCH (21:55)
[2021-07-09] MEDS: DEXAMETHASONE SOD PHOSPHATE 4 MG/ML VIAL IVP SCH ×4 (00:11→18:38)
[2021-07-09 01:00] VITALS: BP_SYST 142
[2021-07-09 01:30] VITALS: BP_SYST 146
--- NOTE | 2021-07-09 01:30 | NUR ---
FALL INCIDENT Patient was sleeping comfortably. She suddenly wakes up at approx. 01:00am and walks to the bathroom without calling. Patient found sitting on bathroom floor by Will/Patternmaker Apprentice Metal. Larry/Charge Nurse at bedside and assists patient back to bed. Patient says that she is okay and she did not hit her head. Vitals WNL. Mild Shortness of breath noted when helping pt back to bed. O2 sat 95%RA. Dr. Angel notified. No new orders given. Message left for family member. Sonya/Portrait Studio Photographer informed. Patient education given. Verbalizes understanding. Call light within reach and side rails up. Bed Alarm turned on. Patient resting quietly in bed. Will continue to monitor.
[2021-07-09 02:23] VITALS: BP_SYST 129
[2021-07-09 06:54] LABS: ANION GAP 7 (5-15); BASOPHILS # (AUTO) 0.1 K/uL (0.0-0.2); BASOPHILS % (AUTO) 0.7 % (0.0-2.0); CALCIUM 8.1 mg/dL (8.4-11.0); CHLORIDE 107 mmol/L (98-107); CREATININE 0.63 mg/dL (0.55-1.30); EOSINOPHILS % (AUTO) 0.1 % (0.0-4.0); GLUCOSE 110 mg/dL (70-99); HEMATOCRIT 39.6 % (36-48); HEMOGLOBIN 13.3 g/dL (12.0-16.0); LYMPHOCYTES # (AUTO) 0.3 K/uL (1.0-5.5); LYMPHOCYTES % (AUTO) 2.1 % (20.5-51.5); MEAN CORPUSCULAR HEMOGLOBIN 32 pg (27-31); MEAN CORPUSCULAR HGB CONC 34 % (32-36); MEAN CORPUSCULAR VOLUME 94 fL (79.0-98.0); MONOCYTES # (AUTO) 0.8 K/uL (0.0-1.0); MONOCYTES % (AUTO) 5.3 % (1.7-9.3); NEUTROPHILS # (AUTO) 13.1 K/uL (1.8-7.7); NEUTROPHILS % (AUTO) 91.8 % (40.0-70.0); PLATELET COUNT (AUTO) 132 K/uL (130-430); POTASSIUM 3.9 mmol/L (3.5-5.1); RED CELL DISTRIBUTION WIDTH 14.6 % (9.0-15.0); SODIUM SERUM 140 mmol/L (136-145); UREA NITROGEN, BLOOD 27 mg/dL (8-21); WHITE BLOOD COUNT (AUTO) 14.3 K/uL (4.8-10.8)
[2021-07-09 08:13] LABS: C-REACTIVE PROTEIN QUANT < 0.2 mg/dL (0-0.5)
--- NOTE | 2021-07-09 08:20 | NUR ---
INITIAL ROUNDS Received pt AAOx4, no s/s resp distress, no c/o pain or discomfort. Plan of care for the day reviewed with pt-pt verbalized her understanding. IVF at KVO rate to TICO PICC with no s/s infiltration to site. Reinforced to pt to call nursing for assist out of bed for safety-she verbalized her understanding. Pain management, disease process, skin and safety discussed, teach back done. Side rails up x3, bed alarm on, room close to nursing station for safety, call light within reach.
[2021-07-09 08:37] VITALS: BP_SYST 152
[2021-07-09] MEDS ORDERED: LATANOPROST 2.5 ML DROPS (XALATAN) OP SCH (09:00)
[2021-07-09] MEDS: PANTOPRAZOLE SODIUM 40 MG/VIAL (PROTONIX) IVP SCH (09:33)
[2021-07-09] MEDS: levETIRAcetam 1,000 MG in NS 100 ML IV SCH ×2 (09:34→21:20)
[2021-07-09 09:51] LABS: ERYTHROCYTE SEDIMENTATION RATE 7 MM/HR (0-20)
--- NOTE | 2021-07-09 15:21 | NUR ---
[facility] CASE MANAGEMENT Called [facility] case therapist and left a message regarding the order for Home Health for physical therapy, FWW and medication reconciliation . Addendum: 07/09/21 at 1905 by Constance Tejada RN PHONE NUMBER [phone]
[2021-07-09 16:05] VITALS: BP_SYST 147
--- NOTE | 2021-07-09 16:47 | NUR ---
[facility] CASE MANAGEMENT Called [facility] Coordinator and left a message regarding the order for Home Health for physical therapy, FWW and medication reconciliation . Informed her pt wants to be discharged today. Awaiting call back.
[2021-07-09] MEDS: LATANOPROST 2.5 ML DROPS (XALATAN) OP SCH (18:32)
--- NOTE | 2021-07-09 19:38 | NUR ---
CLOSING NOTE Pt sitting up in bed visiting with her family. No s/s resp distress, no c/o pain or discomfort. Needs met. Call light within reach.
[2021-07-09 20:00] VITALS: BP_SYST 141
[2021-07-09] MEDS: DOCUSATE SODIUM 100 MG CAPSULE PO SCH (21:20)
[2021-07-09] MEDS: cefTRIAXone 1 GM in D5W 50 ML IV SCH (22:28)
[2021-07-10 00:07] VITALS: BP_SYST 154
[2021-07-10] MEDS: DEXAMETHASONE SOD PHOSPHATE 4 MG/ML VIAL IVP SCH ×4 (00:23→18:13)
[2021-07-10 07:04] LABS: BASOPHILS % (AUTO) 0.1 % (0.0-2.0); HEMOGLOBIN 13.1 g/dL (12.0-16.0); LYMPHOCYTES # (AUTO) 0.4 K/uL (1.0-5.5); LYMPHOCYTES % (AUTO) 2.7 % (20.5-51.5); MEAN CORPUSCULAR HEMOGLOBIN 32 pg (27-31); MEAN CORPUSCULAR HGB CONC 34 % (32-36); MEAN CORPUSCULAR VOLUME 94 fL (79.0-98.0); MONOCYTES # (AUTO) 0.6 K/uL (0.0-1.0); MONOCYTES % (AUTO) 4.1 % (1.7-9.3); NEUTROPHILS # (AUTO) 13.9 K/uL (1.8-7.7); PLATELET COUNT (AUTO) 134 K/uL (130-430); RED BLOOD CELL COUNT(AUTO) 4.17 MIL/uL (4.2-6.2); RED CELL DISTRIBUTION WIDTH 14.6 % (9.0-15.0); WHITE BLOOD COUNT (AUTO) 14.9 K/uL (4.8-10.8)
[2021-07-10 07:36] LABS: ALANINE AMINOTRANSFERASE 27 U/L (12-78); ALBUMIN 2.1 g/dL (3.4-4.8); ANION GAP 7 (5-15); ASPARTATE AMINOTRANSFERASE 18 U/L (10-37); CALCIUM 8.3 mg/dL (8.4-11.0); CHLORIDE 106 mmol/L (98-107); CREATININE 0.61 mg/dL (0.55-1.30); GLUCOSE 116 mg/dL (70-99); POTASSIUM 3.9 mmol/L (3.5-5.1); SODIUM SERUM 140 mmol/L (136-145); TOTAL BILIRUBIN 0.3 mg/dL (0.0-1.0); UREA NITROGEN, BLOOD 25 mg/dL (8-21)
[2021-07-10 07:50] LABS: C-REACTIVE PROTEIN QUANT < 0.2 mg/dL (0-0.5)
[2021-07-10 08:00] VITALS: BP_SYST 148
[2021-07-10] MEDS ORDERED: cefTRIAXone 1 GM in D5W 50 ML IV SCH (08:00)
--- NOTE | 2021-07-10 08:00 | NUR ---
Initial Notes Patient is awake, alert, and oriented. Vital signs obtained. Patient states no pain or SOB. Patient is eating breakfast with head of the bed elevated. Patient is aware to call for assistance. Call light within reach. Safety precautions in place.
[2021-07-10] MEDS: PANTOPRAZOLE SODIUM 40 MG/VIAL (PROTONIX) IVP SCH (08:17)
[2021-07-10] MEDS: levETIRAcetam 1,000 MG in NS 100 ML IV SCH ×2 (08:17→22:19)
[2021-07-10] MEDS: cefTRIAXone 1 GM in D5W 50 ML IV SCH (08:48)
--- NOTE | 2021-07-10 09:38 | NUR ---
[facility]/HCP CM SHUTTLE FILLER NIKKY LOFTON WAS CALLED, RE: HOME HEALTH FOR HOME MED REQ AND FWW TO BE DELIVERED BEFORE HOME DISCHARGE. LEFT A VOICE MESSAGE.
[2021-07-10 11:06] LABS: ERYTHROCYTE SEDIMENTATION RATE 5 MM/HR (0-20)
--- NOTE | 2021-07-10 11:28 | NUR ---
Spoke to Kenzie CRAFT at [employer]-[phone]-She is working on Home Health and FWW for patient. She will put a note when requested services are in place.
[2021-07-10 11:42] VITALS: BP_SYST 144
--- NOTE | 2021-07-10 12:00 | NUR ---
Notes Patient in bed, daughter is at bedside. Patient denies any pain or discomfort. Patient is eating lunch. Safety precautions in place and call light within reach.
--- NOTE | 2021-07-10 13:05 | NUR ---
FWW will be deliver to bedside by [facility] between ETA today 3-7 pm
[2021-07-10 14:31] LABS: NEUTROPHILS % (AUTO) 93.1 % (40.0-70.0)
--- NOTE | 2021-07-10 15:00 | NUR ---
MD note Spoke to Dr. Hardy about discharge order, per MD said he would visit patient first.
[2021-07-10 15:34] VITALS: BP_SYST 136
--- NOTE | 2021-07-10 16:30 | NUR ---
Note Four wheel walker was delivered. 4WW is at bedside. Patient aware. Safety precautions in place and call light within reach. Family at bedside.
[2021-07-10] MEDS: LATANOPROST 2.5 ML DROPS (XALATAN) OP SCH (18:14)
--- NOTE | 2021-07-10 18:40 | NUR ---
Closing Note Patient is talking with her grand daughter. Denies any pain or discomfort. 4WW by bedside. Safety precautions in place and call light within reach.
[2021-07-10 20:00] VITALS: BP_SYST 141
[2021-07-10] MEDS: DOCUSATE SODIUM 100 MG CAPSULE PO SCH (21:00)
[2021-07-10] MEDS: LORazepam 2 MG/ML VIAL IVP PRN (22:39)
[2021-07-11 00:30] VITALS: BP_SYST 123
[2021-07-11] MEDS: DEXAMETHASONE SOD PHOSPHATE 4 MG/ML VIAL IVP SCH ×2 (02:04→06:50)
[2021-07-11 08:16] VITALS: BP_SYST 157
[2021-07-11] MEDS: levETIRAcetam 1,000 MG in NS 100 ML IV SCH (08:37)
[2021-07-11] MEDS: cefTRIAXone 1 GM in D5W 50 ML IV SCH (09:26)
[2021-07-11] MEDS: PANTOPRAZOLE SODIUM 40 MG/VIAL (PROTONIX) IVP SCH (09:26)
--- NOTE | 2021-07-11 10:40 | NUR ---
A/Ox4,vss,ambulatory with walker,d/c home as per dr caicedo.and called cheo in [facility] at [phone],and left message in voice mail that pt 's d/c and there's order for home health d/c IV,d/c instruction given and explained to pt.leaving via w/c and accompanied by her family.
--- NOTE | 2021-07-11 11:00 | NUR ---
[employer] Field Processing Supervisor JOURNEYMAN PATTERNMAKER Samantha responded to a consult for "hospice evaluation". Unable to discuss hospice options as patient had already been discharged
--- NOTE | 2021-07-21 09:18 | NUR ---
Finishing Powder Press Operator NAUMKEAG OPERATOR made a Post Discharge Follow up phone call to former pts. daughter/caregiver, Dali Omer who began by stating her mom, Andressa is dong ok and her spirits are good. PT comes into the home for exercises, they have borrowed a FWW from their [facility]ish and HH has come out twice, taking vitals and blood. Someone will come to assist with showers etc. Dali stated her mom saw an oncologist on 07/20, and will see a radiologist and neurologist on 07/24. [facility] for hospice came out for an evaluation. Dali stated they are not yet ready for hospice services, but have a contact if they should ever decide they want to initiate hospice services. NAUMKEAG OPERATOR let them know they could seek out other companies as well. Re. the O2, Dali stated at first the wanted home O2, but prior to d/c stated pt. did not need home O2. NAUMKEAG OPERATOR thanked her for the update.
== END 2021-07-11 10:40 | disposition home health service (06) | DRG 871 ==
LOC: SED 10:39 → SIC 15:41 → STU 07-06 21:57
PROVIDERS: ADMIT Preventive Medicine Preventive Medicine/Occupational Environmental Medicine; ATTEND Preventive Medicine Preventive Medicine/Occupational Environmental Medicine
PROC: 5A1945Z Respiratory Ventilation, 24-96 Consecutive Hours (ICD-10-PCS; principal; 2021-07-03)
PROC: 0BH17EZ Insertion of Endotracheal Airway into Trachea, Via Natural or Artificial Opening (ICD-10-PCS; 2021-07-03)
DX: A41.9 Sepsis, unspecified organism (principal); J96.01 Acute respiratory failure with hypoxia; E43 Unspecified severe protein-calorie malnutrition; J14 Pneumonia due to Hemophilus influenzae; E87.2 Acidosis; C79.9 Secondary malignant neoplasm of unspecified site; C34.90 Malignant neoplasm of unspecified part of unspecified bronchus or lung; J44.0 Chronic obstructive pulmonary disease with (acute) lower respiratory infection; C79.31 Secondary malignant neoplasm of brain; E88.09 Other disorders of plasma-protein metabolism, not elsewhere classified; E78.5 Hyperlipidemia, unspecified; G40.901 Epilepsy, unspecified, not intractable, with status epilepticus; R13.10 Dysphagia, unspecified; E03.9 Hypothyroidism, unspecified; Z20.822 Contact with and (suspected) exposure to COVID-19; E83.52 Hypercalcemia; Z85.118 Personal history of other malignant neoplasm of bronchus and lung; Z87.891 Personal history of nicotine dependence
CPT/HCPCS: 36415; 36600; 70450-TC; 71045; 76376; 80048; 80053; 81000; 82803-TC; 83605; 83735; 84100; 84484; 85025; 85610-TC; 85651-TC; 85730-TC; 86140; 87040; 87070-TC; 87081; 87086; 87205-TC; 92610-GN; 93005; 94002; 94003; 95816; 97116-GP; 97530-GP; 99291; C9113; G0378; J0360; J0696; J1100; J1953; J2060; J2704; J3490; J7060